=== PATIENT | female | born 1990 | race Caucasian/White ===

== ENCOUNTER → 2017-04-05 19:55 | Observation (INO) ==
[2017-04-05 17:46] LABS: Bilirubin,Urine Negative (Negative); Blood,Urine Negative (Negative); Clarity,Urine Slightly Cloudy (Clear); Color,Urine Yellow (Yellow); Glucose,Urine (UA) Normal (Normal); Ketones,Urine Negative (Negative); Leukocyte Esterase,Urine Trace (Negative); Nitrite,Urine Negative (Negative); Protein,Urine 30 mg/dL (Neg-Trace); Specific Gravity,Urine >= 1.030 (1.010-1.025); Urobilinogen,Urine Normal (Normal)
[2017-04-05 18:03] LABS: Bacteria,Urine Moderate per hpf (None-Few); Mucus,Urine Few (Few); Squamous Epithelial Cell,Urine Many per lpf (None-Few)
--- NOTE | 2017-04-05 19:42 | OB/GYN Progress Note ---
Date of Encounter: 04/05/17 Time of Encounter: 19:41 - Assessment and Plan (1) 35 weeks gestation of Status: Acute Pt [facility] Pt states steroids given at [place] for potential late pretern (2) [place]' contraction Status: Acute Pt followed on tocodynameter, contractions noted on monitor, Contracts noted every 6-8 minutes, mild with palpation. Cervical exams performed by RN and CMN: No cervical change noted during hospitalization Provided educational counseling given about labor precautions, when to return to triage or call provider discussed, pt and mother verbalize understanding. (3) NST (non-stress test) reactive Status: Acute Baseline 135 (4) Encounter for suspected PROM, with rupture of membranes not found Status: Acute Nitrazine and ferning negative Vaginosis panel + for BV will also call rx for flagyl to patients pharmacy, (5) UTI (urinary tract infection) during Status: Acute UA reflex for culture. Given pt symptoms of dyuria and suprapubic pressure. Discussed with Dr. Ramirez will give rx for macrobid. Qualifiers: Trimester: third trimester Qualified Code(s): O23.43 - Unspecified infection of urinary tract in , third trimester Subjective - Subjective Principal diagnosis: [place] Contractions Interval history: 26 yo F 34+4 presenting for contractions q 6-7 min and leaking clear fluid. Pt initially represented at outside hospital for contractions, with no cervical dilations noted during hospitalization. Endorses active movement Pt denies vaginal bleeding and notes lower abdominal cramping. . She endorses "discomfort" during urination. No increased frequency. No inability to void. Denies headache, vision changes, chest pain, SOB, nausea, vomiting, diarrhea and constipation. Pt with care from Dr. Jasmine states uncomplicated PMHX of multiple sclerosis Social History: Denies Smoking. Denies Alcohol. Denies Drug Use. Antepartum ROS: new complaints, movement normal, contractions (Pt ), no vaginal bleeding Objective - Vital Signs Vital Signs: Intake and Output 04/05/17 04/05/17 04/05/17 07:59 15:59 23:59 Other: Weight 77.7 kg Patient Weight 04/05/17 23:59 Weight 77.7 kg - Exam FHR: auscultation normal, category 1 FHR comments: baseline 135 Auscultation: left: normal Abdomen: Present: normal appearance, soft, gravid Uterus: Present: normal Cervical dilation: 1.5//-3 Comments: performed by CHRIS Smith - Labs Labs: Abnormal lab results Urine Clarity Slightly Cloudy (Clear) A 04/05/17 17:20 Ur Specific [place] >= 1.030 (1.010-1.025) H 04/05/17 17:20 Urine Protein 30 mg/dL (Neg-Trace) H 04/05/17 17:20 Ur Leukocyte Esterase Trace (Negative) H 04/05/17 17:20 Urine Microscopic WBC 3-5 per hpf (0-3) H 04/05/17 17:20 Ur Squamous Epith Cells Many per lpf (None-Few) H 04/05/17 17:20 Urine Bacteria Moderate per hpf (None-Few) H 04/05/17 17:20 Ur Culture Indicated? YES (NO) A 04/05/17 17:20
[2017-04-05 20:41] LABS: Candida DNA Not Detected (Not Detect); Gardnerella DNA ***DETECTED*** (Not Detect); Trichomonas DNA Not Detected (Not Detect)
== END | disposition home or self-care (01) ==
LOC: 1NENULAB
PROVIDERS: ADMIT Student in an Organized Health Care Education/Training Program; ATTEND Student in an Organized Health Care Education/Training Program

== ENCOUNTER 2020-11-02 07:59 | Inpatient (IN) ==
[2020-11-02] MEDS ORDERED: 0.9 % Sodium Chloride 1,000 ML IVC ONE (08:08)
[2020-11-02] MEDS ORDERED: Ondansetron 4 MG/2 ML VIAL IVP ONE (08:11)
[2020-11-02] MEDS ORDERED: Ketorolac 30 MG/ML VIAL IVP ONE (08:19)
[2020-11-02 08:24] LABS: Basophils % 0.2 %; Eosinophils % 0.2 %; Hematocrit 40.7 % (35.3-44.9); Hemoglobin 13.4 g/dL (11.5-15.4); Immature Granulocytes % 0.5 % (0-4); Lymphocytes # 1.8 K/mcL (0.6-4.6); Lymphocytes % 18.3 %; Mean Corpuscular HGB Conc 32.9 g/dL (31.6-35.5); Mean Corpuscular Hemoglobin 29.8 pg (28.0-33.3); Mean Corpuscular Volume 90.6 fL (83.0-100.0); Mean Platelet Volume 10.3 fL (9.4-12.4); Monocytes # 0.4 K/mcL (0.0-1.3); Monocytes % 4.4 %; Neutrophils # 7.6 K/mcL (1.6-8.9); Platelet Count 268 K/mcL (140-400); Red Blood Count 4.49 M/mcL (3.82-4.97); Red Cell Distribution Width 13.2 % (11.5-14.5); Segmented Neutrophils % 76.4 %
[2020-11-02 08:29] LABS: Prothrombin Time 11.4 Seconds (9.4-12.1)
[2020-11-02 08:42] LABS: Alanine Aminotransferase 17 Units/L (7-52); Albumin 4.8 g/dL (3.5-5.7); Albumin/Globulin Ratio 1.8 (1.1-2.2); Alkaline Phosphatase 37 Units/L (34-104); Aspartate Amino Transferase 14 Units/L (13-39); BUN/Creatinine Ratio 16 (6-26); Bilirubin,Total 0.4 mg/dL (0.3-1.0); Blood Urea Nitrogen 11 mg/dL (6-20); Calcium 10.3 mg/dL (8.6-10.3); Carbon Dioxide 20 mEq/L (23-29); Chloride 106 mEq/L (98-107); Globulin 2.7 g/dL (2.4-3.5); Glucose 120 mg/dL (70-105); Osmolality,Calculated 289 (280-300); Potassium 3.4 mEq/L (3.5-5.1); Sodium 139 mEq/L (136-145); Total Protein 7.5 g/dL (6.4-8.9); Troponin I < 0.03 ng/mL (< 0.04); eGFR For African Americans > 60 (> 60); eGFR For Non-African Americans > 60 (> 60)
[2020-11-02] MEDS ORDERED: diazePAM 10 MG/2 ML SYRINGE IVP ONE ×2 (09:06→10:17)
[2020-11-02 09:58] LABS: Bilirubin,Urine Negative (Negative); Blood,Urine Negative (Negative); Clarity,Urine Clear (Clear); Color,Urine Colorless (Yellow); Glucose,Urine (UA) Normal (Normal); Ketones,Urine Negative (Negative); Leukocyte Esterase,Urine Negative (Negative); Nitrite,Urine Negative (Negative); PH,Urine 7.5 pH Units (5.0-8.0); Protein,Urine Negative (Neg-Trace); Specific Gravity,Urine 1.008 (1.010-1.025); Urobilinogen,Urine Normal (Normal)
[2020-11-02] MEDS ORDERED: Naloxone 0.4 MG/ML INJ IVP PRN (11:52)
[2020-11-02] MEDS: *HR* Heparin 5,000 UNIT/ML VIAL SQ SCH ×3 (16:38→23:36)
[2020-11-02] MEDS: Acetaminophen/Butalbital/CaffeineTABLET PO PRN (18:05)
[2020-11-02] MEDS: Ondansetron 4 MG/2 ML VIAL IVP PRN (23:36)
[2020-11-03] MEDS: *HR* Heparin 5,000 UNIT/ML VIAL SQ SCH ×3 (06:03→20:47)
[2020-11-03 08:50] LABS: Hemoglobin 12.3 g/dL (11.5-15.4); Mean Corpuscular HGB Conc 32.4 g/dL (31.6-35.5); Mean Corpuscular Volume 92.7 fL (83.0-100.0); Mean Platelet Volume 10.1 fL (9.4-12.4); Platelet Count 221 K/mcL (140-400); Red Cell Distribution Width 13.4 % (11.5-14.5)
[2020-11-03 09:04] LABS: BUN/Creatinine Ratio 16 (6-26); Blood Urea Nitrogen 12 mg/dL (6-20); Calcium 9.3 mg/dL (8.6-10.3); Carbon Dioxide 26 mEq/L (23-29); Chloride 108 mEq/L (98-107); Glucose 98 mg/dL (70-105); Osmolality,Calculated 288 (280-300); Sodium 139 mEq/L (136-145); eGFR For African Americans > 60 (> 60); eGFR For Non-African Americans > 60 (> 60)
[2020-11-03] MEDS: Ondansetron 4 MG/2 ML VIAL IVP PRN (09:44)
[2020-11-03] MEDS: Acetaminophen/Butalbital/CaffeineTABLET PO PRN ×2 (13:18→22:15)
[2020-11-04 02:38] LABS: Hematocrit 36.7 % (35.3-44.9); Hemoglobin 11.8 g/dL (11.5-15.4); Mean Corpuscular HGB Conc 32.2 g/dL (31.6-35.5); Mean Corpuscular Hemoglobin 29.8 pg (28.0-33.3); Mean Corpuscular Volume 92.7 fL (83.0-100.0); Mean Platelet Volume 10.3 fL (9.4-12.4); Platelet Count 227 K/mcL (140-400); Red Blood Count 3.96 M/mcL (3.82-4.97); Red Cell Distribution Width 13.3 % (11.5-14.5); White Blood Count 6.5 K/mcL (4.3-11.1)
[2020-11-04 02:55] LABS: BUN/Creatinine Ratio 21 (6-26); Blood Urea Nitrogen 15 mg/dL (6-20); Calcium 9.2 mg/dL (8.6-10.3); Carbon Dioxide 24 mEq/L (23-29); Chloride 108 mEq/L (98-107); Glucose 104 mg/dL (70-105); Osmolality,Calculated 287 (280-300); Potassium 3.7 mEq/L (3.5-5.1); Sodium 138 mEq/L (136-145); eGFR For African Americans > 60 (> 60); eGFR For Non-African Americans > 60 (> 60)
[2020-11-04] MEDS: *HR* Heparin 5,000 UNIT/ML VIAL SQ SCH ×3 (05:14→19:51)
[2020-11-04] MEDS: Acetaminophen/Butalbital/CaffeineTABLET PO PRN ×2 (08:11→15:58)
[2020-11-04] MEDS: Ondansetron 4 MG/2 ML VIAL IVP PRN (08:11)
[2020-11-04] MEDS ORDERED: Gadolinium Contrast Agent (WT Based) IV PRN (11:10)
[2020-11-04] MEDS ORDERED: methylPREDNISolone 125 MG/2 ML VIAL IVP SCH (13:25)
[2020-11-04] MEDS: methylPREDNISolone 250 MG in 0.9 % Sodium Chloride 50 ML IVPB SCH ×2 (16:15→21:48)
[2020-11-04] MEDS: diazePAM 2 MG TABLET PO PRN (16:24)
[2020-11-04] MEDS ORDERED: *HR* LORazepam 2 MG/ML VIAL IVP ONE (21:42)
[2020-11-05 01:54] LABS: Hematocrit 39.2 % (35.3-44.9); Hemoglobin 12.6 g/dL (11.5-15.4); Mean Corpuscular HGB Conc 32.1 g/dL (31.6-35.5); Mean Corpuscular Hemoglobin 29.2 pg (28.0-33.3); Mean Platelet Volume 10.4 fL (9.4-12.4); Platelet Count 273 K/mcL (140-400); Red Blood Count 4.31 M/mcL (3.82-4.97); Red Cell Distribution Width 13.1 % (11.5-14.5); White Blood Count 6.7 K/mcL (4.3-11.1)
[2020-11-05 02:14] LABS: BUN/Creatinine Ratio 19 (6-26); Blood Urea Nitrogen 14 mg/dL (6-20); Calcium 9.6 mg/dL (8.6-10.3); Carbon Dioxide 20 mEq/L (23-29); Chloride 105 mEq/L (98-107); Glucose 191 mg/dL (70-105); Osmolality,Calculated 290 (280-300); Potassium 3.8 mEq/L (3.5-5.1); Sodium 137 mEq/L (136-145); eGFR For African Americans > 60 (> 60); eGFR For Non-African Americans > 60 (> 60)
[2020-11-05] MEDS: methylPREDNISolone 250 MG in 0.9 % Sodium Chloride 50 ML IVPB SCH ×4 (02:56→20:47)
[2020-11-05] MEDS: *HR* Heparin 5,000 UNIT/ML VIAL SQ SCH ×3 (05:20→20:46)
[2020-11-05] MEDS: Acetaminophen/Butalbital/CaffeineTABLET PO PRN ×2 (08:52→15:05)
[2020-11-05] MEDS: diazePAM 2 MG TABLET PO PRN ×2 (08:53→20:46)
[2020-11-05] MEDS ORDERED: Ketorolac 15 MG/ML VIAL IVP PRN (12:02)
[2020-11-05 12:31] LABS: Glucose,CSF 89 mg/dL (40-70); Total Protein,CSF 66 mg/dL (15-45)
[2020-11-05 13:32] LABS: Appearance,CSF Clear (Clear)
[2020-11-05 13:35] LABS: Red Blood Cell,CSF < 2000 RBC/mcL
[2020-11-05 13:37] LABS: Basophils,CSF 0 %
[2020-11-05] MEDS: Pantoprazole 40 MG VIAL IVP SCH (13:58)
[2020-11-05] MEDS: Ondansetron 4 MG/2 ML VIAL IVP PRN (18:41)
[2020-11-06] MEDS: methylPREDNISolone 250 MG in 0.9 % Sodium Chloride 50 ML IVPB SCH ×4 (02:36→21:56)
[2020-11-06 03:22] LABS: Hematocrit 36.7 % (35.3-44.9); Hemoglobin 11.8 g/dL (11.5-15.4); Mean Corpuscular HGB Conc 32.2 g/dL (31.6-35.5); Mean Corpuscular Hemoglobin 29.4 pg (28.0-33.3); Mean Corpuscular Volume 91.3 fL (83.0-100.0); Mean Platelet Volume 10.2 fL (9.4-12.4); Platelet Count 289 K/mcL (140-400); Red Blood Count 4.02 M/mcL (3.82-4.97); Red Cell Distribution Width 13.6 % (11.5-14.5)
[2020-11-06 03:23] LABS: White Blood Count 16.3 K/mcL (4.3-11.1)
[2020-11-06 03:36] LABS: BUN/Creatinine Ratio 29 (6-26); Blood Urea Nitrogen 17 mg/dL (6-20); Calcium 9.7 mg/dL (8.6-10.3); Carbon Dioxide 21 mEq/L (23-29); Chloride 107 mEq/L (98-107); Glucose 153 mg/dL (70-105); Osmolality,Calculated 291 (280-300); Potassium 4.1 mEq/L (3.5-5.1); Sodium 138 mEq/L (136-145); eGFR For African Americans > 60 (> 60); eGFR For Non-African Americans > 60 (> 60)
[2020-11-06] MEDS: *HR* Heparin 5,000 UNIT/ML VIAL SQ SCH ×3 (05:40→21:57)
[2020-11-06] MEDS: Pantoprazole 40 MG VIAL IVP SCH (09:06)
[2020-11-06] MEDS: diazePAM 2 MG TABLET PO PRN ×2 (09:19→17:43)
[2020-11-06] MEDS: Acetaminophen/Butalbital/CaffeineTABLET PO PRN ×2 (14:36→21:57)
[2020-11-07] MEDS: methylPREDNISolone 250 MG in 0.9 % Sodium Chloride 50 ML IVPB SCH ×2 (04:09→10:26)
[2020-11-07] MEDS: Acetaminophen/Butalbital/CaffeineTABLET PO PRN ×2 (04:12→10:39)
[2020-11-07] MEDS: diazePAM 2 MG TABLET PO PRN ×2 (04:12→15:46)
[2020-11-07] MEDS: *HR* Heparin 5,000 UNIT/ML VIAL SQ SCH (05:17)
[2020-11-07 09:45] LABS: ANA IgG by ELISA NONE DETECTED (None Detected)
[2020-11-07 09:53] VITALS: BP 105/68
[2020-11-07] MEDS: Pantoprazole 40 MG VIAL IVP SCH (10:29)
[2020-11-07 13:28] LABS: Borrelia burgdorferi Abs CSF 0.29 LIV (<=0.99)
[2020-11-07] MEDS ORDERED: Ondansetron ODT 4 MG TAB.RAPDIS SL ONE (15:14)
[2020-11-08 10:05] LABS: Aquaporin-4 Receptor Antibody <1.5 U/mL (<=2.9)
[2020-11-10 02:51] LABS: IgG CSF 5.1 mg/dL (0.0-6.0)
[2020-11-10 08:51] LABS: Albumin Index 10.6 ratio (0.0-9.0); IgG Serum 749 mg/dL (768-1632)
== END 2020-11-07 17:00 | disposition home or self-care (01) | DRG 43 ==
LOC: EMEROOARM 07:59 → 3NENU 07:59 → SUATTDRO 11:59 → 3NENU 12:40 → SUATTDRO 11-05 09:12
PROVIDERS: ADMIT Internal Medicine; ATTEND Internal Medicine